=== PATIENT | female | born 1990 | race Caucasian/White ===

== ENCOUNTER 2016-12-27 19:29 | Emergency (ER) | payer OTHER ==
[2016-12-27 19:36] VITALS: BP 111/64; PULSE 79; TEMP 98.5; BMI 20.7
--- NOTE | 2016-12-27 19:42 | PDOC ---
History of Present Illness - History of Present Illness Initial Comments: 12/27/16 21:06 The patient is a 26 year old female, with no significant past medical history bipolar/schizophrenia, who presents to the emergency department with neck stiffness and generalized muscle aches since Sunday. She states her neck pain, with associated anterior chest and rib pain is exacerbated with deep inspiration. However, she denies feeling short of breath. As per the patient's mother, her daughter has been on a new medication for the past year and has become very stiff and sore since. The patient reports some intermittent nauseous but denies vomiting. The patients mother reports she started giving her daughter the medications only in the morning, but noticed her daughters attitude was not improving. She states that since introducing the medication at night, as well as the morning, 6 months ago, her daughter has been complaining of muscle pains and excluding herself from friends and family. She states her general medical physician is aware and has told her these are the side effects. The patients mother reports one of the 2x daily medications is a muscle relaxer , which does not seem to be working. She denies shortness of breath, headache and dizziness. She denies fever, chills , vomit, diarrhea and constipation. She denies dysuria, frequency, urgency and hematuria. Allergies: NKDA PCP - Dr. Muñoz <Crystal Molina - Last Filed: 12/27/16 21:15> <Dimple Hopkins - Last Filed: 12/28/16 04:59> - General Chief Complaint: Pain, Acute Stated Complaint: "MY NECK FEELS STIFF" Time Seen by Provider: 12/27/16 19:31 Past History <Crystal Molina - Last Filed: 12/27/16 21:15> - Past Medical History Psychiatric Problems: Yes - Immunization History Immunization Up to Date: Yes - Psycho/Social/Smoking Cessation Hx Anxiety: No Suicidal Ideation: No Smoking History: Current every day smoker Have you smoked in the past 12 months: No Number of Cigarettes Smoked Daily: 20 Information on smoking cessation initiated: Yes 'Breaking Loose' booklet given: 12/27/16 Hx Alcohol Use: No Drug/Substance Use Hx: No Substance Use Type: None <Dimple Hopkins - Last Filed: 12/28/16 04:59> - Past Medical History Allergies/Adverse Reactions: Allergies Allergy/AdvReac Type Severity Reaction Status Date / Time No Known Allergies Allergy Unverified 12/27/16 19:36 Home Medications: Ambulatory Orders Benztropine Mesylate 0.5 mg PO DAILY 12/27/16 Lorazepam [Ativan] 0.5 mg PO BID PRN #6 tablet MDD 2 tabs 12/27/16 Propranolol HCl 10 mg PO DAILY 12/27/16 Review of Systems - Review of Systems Able to Perform ROS?: Yes Comments:: 12/27/16 21:07 CONSTITUTIONAL: Absent: fever, chills, diaphoresis, generalized weakness, malaise, loss of appetite HEENT: Absent: rhinorrhea, nasal congestion, throat pain, throat swelling, difficulty swallowing,mouth swelling, ear pain, eye pain, visual Changes CARDIOVASCULAR: Absent: chest pain, syncope, palpitations, irregular heart rate, lightheadedness , peripheral edema RESPIRATORY: Absent: cough, shortness of breath, dyspnea with exertion, orthopnea, wheezing, stridor, hemoptysis GASTROINTESTINAL: (+) nausea, Absent: abdominal pain, abdominal distension,vomiting, diarrhea, constipation, melena, hematochezia GENITOURINARY: Absent: dysuria, frequency, urgency, hesitancy, hematuria, flank pain, genital pain MUSCULOSKELETAL: (+) generalized muscle aches. Neck pain. Absent: joint swelling SKIN: Absent: rash, itching, pallor HEMATOLOGIC/IMMUNOLOGIC: Absent: easy bleeding, easy bruising, lymphadenopathy, frequent infections ENDOCRINE: Absent: unexplained weight gain, unexplained weight loss, heat intolerance, cold intolerance NEUROLOGIC: Absent: headache, focal weakness or paresthesias, dizziness, unsteady gait, seizure, mental status changes, bladder or bowel incontinence PSYCHIATRIC: Absent: anxiety, depression, suicidal or homicidal ideation, hallucinations. <Crystal Molina - Last Filed: 12/27/16 21:15> *Physical Exam - Vital Signs Last Vital Signs Temp Pulse Resp BP Pulse Ox 98.5 F 79 14 111/64 98 12/27/16 19:31 12/27/16 19:31 12/27/16 19:31 12/27/16 19:31 12/27/16 19:31 - Physical Exam Comments: 12/27/16 21:08 GENERAL: The patient is awake, alert, and fully oriented, in no acute distress. HEAD: Normal with no signs of trauma. EYES: Pupils equal, round and reactive to light, extraocular movements intact, sclera anicteric, conjunctiva clear with no pallor. ENT: (+) Dry mucous membranes.Ears normal, nares patent, oropharynx clear without exudates. NECK: No Meninges signs. Normal range of motion, supple without lymphadenopathy , JVD, or masses. LUNGS: Breath sounds equal, clear to auscultation bilaterally. No wheeze/ crackles. HEART: Regular rate and rhythm, normal S1 and S2 without murmur or rub. ABDOMEN: Soft/nontender/nondistended. BS wnl. No guarding or rebound. No palpable masses. No hepatosplenomegaly. EXTREMITIES: Normal range of motion, no edema. No clubbing or cyanosis. No cords , erythema, or tenderness. NEUROLOGICAL: Cranial nerves II through XII grossly intact. Normal speech, normal gait. SKIN: Warm, Dry, normal turgor, no rashes or lesions noted. PSYCH: (+) Flat Affect <Crystal Molina - Last Filed: 12/27/16 21:15> - Vital Signs Last Vital Signs Temp Pulse Resp BP Pulse Ox 98.5 F 79 14 111/64 98 12/27/16 19:31 12/27/16 19:31 12/27/16 19:31 12/27/16 19:31 12/27/16 19:31 <Dimple Hopkins - Last Filed: 12/28/16 04:59> ED Treatment Course - LABORATORY CBC & Chemistry Diagram: 12/27/16 21:10 12/27/16 21:10 <Dimple Hopkins - Last Filed: 12/28/16 04:59> Medical Decision Making - Medical Decision Making Documentation has been prepared under my direction and personally reviewed by me in its entirety. I attest that this documented accurately reflects all work, treatment, procedures and medical decision making performed by me. As noted above, this 26-year-old woman with a history of schizophrenia and mood disorder presents with her parents with complaints of a few days of worsening pain with movement of her neck and mild pain with deep breathing. Mother states that the patient has chronic discomfort and stiffness of her upper body muscles secondary to her antipsychotic medication (olanzapine). She is currently being treated with benzatropine and propanolol but has episodes of severe pain in her muscles despite this. Patient's psychiatrist is aware of this but suggested that emergency room consultation was needed because of her extreme pain. No recent fever/chills/rash. She has not had any recent upper respiratory infections. She denies shortness of breath/wheezing/cough. There is been no lower extremity pain or swelling. Exam as noted The clinical presentation appears to be in most likely consistent with extrapyramidal side effects of an antipsychotic medication. However, we will get CBC/chemistry profile to fully rule out infectious causes or extreme dehydration/electrolyte abnormalities. Magnesium and phosphorus levels will also be sent Meanwhile, family had asked for patient and her family asked for medication to decrease her muscle pain. Patient given Valium 5 mg by mouth. Laboratory evaluation essentially normal except for minimally decreased magnesium level. Patient has some relief in her muscle pain after 5 mg of Valium by mouth. Results discussed with the patient and her family. No evidence to suggest that patient's symptoms are related to anything except for medication side effects. While magnesium supplementation would help to prevent muscle spasms, levels are only minimally decreased. Therefore, diet should be supplemented with foods high in magnesium. The risks of benzodiazepines including sedation and possible addiction discussed with the patient and her family. They asked for a small prescription to be used only in situations when muscle pain is preventing the patient from sleeping well. Small (#6) prescription for lorazepam 0.5 mg to be used up to twice a day as needed for severe pain will be prescribed. Meanwhile, psychiatrist should be contacted and today's ER visit discussed. The patient should drink plenty of water to prevent further muscle contractions and return to the ER if she has persistent, severe symptoms <Dimple Hopkins - Last Filed: 12/28/16 04:59> *DC/Admit/Observation/Transfer - Attestations Scribe Attestion: 12/27/16 21:09 Documentation prepared by Crystal Molina, acting as biomedical engineering professor for Dimple Hopkins MD <Crystal Molina - Last Filed: 12/27/16 21:15> <Dimple Hopkins - Last Filed: 12/28/16 04:59> Diagnosis at time of Disposition: Medication side effect - Discharge Dispostion Disposition: HOME Condition at time of disposition: Stable - Prescriptions Prescriptions: Lorazepam [Ativan] 0.5 mg PO BID PRN #6 tablet MDD 2 tabs PRN Reason: Muscle Spasms - Referrals Referrals: Therese Muñoz MD [Primary Care Provider] - - Patient Instructions Additional Instructions: rest drink plenty of water continue medications as prescribed followup with your doctor within 5 days Ativan 0.5 mg up to twice a day for severe symptoms return to ER if you have persistent severe symptoms
[2016-12-27] MEDS ORDERED: diazePAM 5 MG TABLET PO ONE (21:09)
[2016-12-27 21:29] LABS: BASOPHIL 0.4 % (0-2.0); EOSINOPHIL 3.2 % (0-4.5); MCH 30.1 pg (25.7-33.7); MCHC 34.5 g/dl (32.0-36.0); MEAN PLT VOLUME 9.9 fl (7.5-11.1); NEUTROPHILS 66.1 % (42.8-82.8); PLATELET COUNT 190 K/MM3 (134-434); WHITE BLOOD COUNT 9.8 K/mm3 (4.0-10.0)
[2016-12-27] MEDS ORDERED: diazePAM 5 MG TABLET ONE (21:36)
[2016-12-27 21:42] LABS: ALBUMIN 4.4 g/dl (3.5-5.0); ALK PHOS 62 U/L (32-92); ANION GAP 8 (8-16); BILIRUBIN,TOTAL 0.7 mg/dl (0.2-1.0); CALCIUM 9.1 mg/dl (8.4-10.2); CO2 25 mmol/L (22-28); CREATININE 0.7 mg/dl (0.6-1.3); GLUCOSE,RANDOM 101 mg/dl (74-106); MAGNESIUM 1.6 mg/dL (1.8-2.4); PHOSPHOROUS 3.2 mg/dl (2.5-4.6); SGOT/AST 21 U/L (10-42); SGPT/ALT 13 U/L (10-40); TOT PROT 7.7 g/dl (6.4-8.3)
== END 2016-12-27 22:28 | disposition home or self-care (01) ==
LOC: FER 19:29
DX: T65.91XA Toxic effect of unspecified substance, accidental (unintentional), initial encounter (principal); F20.9 Schizophrenia, unspecified; F17.210 Nicotine dependence, cigarettes, uncomplicated; X58.XXXA Exposure to other specified factors, initial encounter; Y93.9 Activity, unspecified
CPT/HCPCS: 36415; 80053; 83735; 84100; 85025; 99282-25

== ENCOUNTER 2022-12-08 14:19 | Emergency (ER) | payer OTHER ==
[2022-12-08 14:40] VITALS: BP 134/91; PULSE 98; RESP 16; TEMP 98.4; BMI 21.2
== END 2022-12-08 16:00 | disposition home or self-care (01) ==
LOC: FER 14:19
DX: S13.4XXA Sprain of ligaments of cervical spine, initial encounter (principal); V49.40XA Driver injured in collision with unspecified motor vehicles in traffic accident, initial encounter
CPT/HCPCS: 99283-25